=== PATIENT | female | born 1975 | race Caucasian/White ===

== ENCOUNTER 2020-03-19 19:56 | Emergency (ER) | payer OTHER ==
[~2020-03-19] VITALS: Ht 165.1 cm; Wt 104.3 kg
[2020-03-19] MEDS ORDERED: cloNIDine HCL 0.1 MG TAB ONE (20:30)
[2020-03-19] MEDS ORDERED: cloNIDine HCL 0.1 MG TAB PO ONE (20:45)
[2020-03-19] MEDS ORDERED: KETOROLAC TROMETH 60MG/2ML VIAL IM ONE (22:30)
[2020-03-19 22:41] VITALS: BP 126/79
== END 2020-03-20 01:06 | disposition home or self-care (01) ==
LOC: ER 19:58
DX: S46.911A Strain of unspecified muscle, fascia and tendon at shoulder and upper arm level, right arm, initial encounter (principal); S46.912A Strain of unspecified muscle, fascia and tendon at shoulder and upper arm level, left arm, initial encounter; S50.812A Abrasion of left forearm, initial encounter; S30.1XXA Contusion of abdominal wall, initial encounter; S00.83XA Contusion of other part of head, initial encounter; J32.9 Chronic sinusitis, unspecified; V49.9XXA Car occupant (driver) (passenger) injured in unspecified traffic accident, initial encounter; Y93.89 Activity, other specified; Y92.89 Other specified places as the place of occurrence of the external cause; Y99.8 Other external cause status
CPT/HCPCS: 70450; 72125; 72128; 73030; 73090; 73562; 96372; 99285; J1885

== ENCOUNTER 2022-01-17 16:33 | Emergency (ER) | payer OTHER ==
[~2022-01-17] VITALS: Ht 165.1 cm; Wt 113.0 kg
[2022-01-17] MEDS ORDERED: MORPHINE SULFATE 4 MG/ML SYR/VIAL IV ONE (18:00)
[2022-01-17] MEDS ORDERED: IOHEXOL 300 MG/ML 100ML BOTTLE IJ ONE (18:00)
[2022-01-17] MEDS ORDERED: SODIUM CHLORIDE 0.9% 1,000 ML IV ONE (18:00)
[2022-01-17] MEDS ORDERED: ONDANSETRON HCL 4 MG/2 ML VIAL IV ONE (18:00)
[2022-01-17 19:02] LABS: Basophils # (auto) 0 10 ^3/uL (0-0.2); Basophils % (auto) 0.4 % (0.0-2.0); Eosinophils # (auto) 0 10 ^3/uL (0-0.8); Eosinophils % (auto) 0.1 % (0.0-7.0); Hematocrit 39.4 % (36.0-46.0); Hemoglobin 13.2 g/dL (12.2-16.2); Lymphocytes # (auto) 0.8 10 ^3/uL (0.4-5.4); Lymphocytes % (auto) 5.4 % (10.0-50.0); Mean Corpuscular Hgb Conc. 33.4 g/dL (32.0-36.0); Mean Corpuscular Volume 95.8 fL (80.0-100.0); Monocytes # (auto) 0.5 10 ^3/uL (0-1.3); Monocytes % (auto) 3.9 % (0.0-12.0); Neutrophils # (auto) 12.5 10 ^3/uL (1.6-8.6); Neutrophils % (auto) 90.2 % (37.0-80.0); Nucleated Red Blood Cells % 0.1 %; Red Blood Cells 4.11 10^6/uL (4.0-5.20); Red Cell Distribution Width 13.8 % (11.8-14.3); White Blood Cell 13.8 10^3/uL (4.4-10.8)
[2022-01-17 19:17] LABS: Albumin 3.6 g/dL (3.4-5.0); Calcium 8.4 mg/dL (8.5-10.1); Potassium 3.6 mmol/L (3.5-5.1)
[2022-01-17 19:20] LABS: BUN/Creatinine Ratio 8.2; Bilirubin, Total 0.6 mg/dL (0.2-1.0); Total Protein 7.2 g/dL (6.4-8.2)
[2022-01-17] MEDS ORDERED: HYDR-4798 PO (19:53)
[2022-01-17 20:00] VITALS: BP 161/101
[2022-01-18] MEDS ORDERED: HYDR-4902 PO (13:28)
== END 2022-01-17 20:34 | disposition home or self-care (01) ==
LOC: ER 16:33
DX: S20.219A Contusion of unspecified front wall of thorax, initial encounter (principal); V43.52XA Car driver injured in collision with other type car in traffic accident, initial encounter; Y93.89 Activity, other specified; Y92.410 Unspecified street and highway as the place of occurrence of the external cause; Y99.8 Other external cause status
CPT/HCPCS: 36415; 71046; 71260; 74177; 80053; 85025; 93005; 96361; 96374; 96375; 99285; J2270; J2405; J7030; Q9967